=== PATIENT | male | born 1935 | race Caucasian/White ===

== ENCOUNTER 2018-09-23 14:26 | Outpatient (CLI) | payer MEDICARE, OTHER ==
[~2018-09-23] VITALS: Ht 172.7 cm; Wt 104.3 kg
[2018-09-23 15:25] LABS: TOTAL HEMOGLOBIN 17.2 G/dl (14.0-18.0)
[2018-09-23] MEDS ORDERED: albuterol 2.5 MG/3 ML nebule NEB PRN (15:35)
== END 2018-09-23 23:59 | disposition home or self-care (01) ==
LOC: RT 14:26
PROVIDERS: ATTEND Internal Medicine Pulmonary Disease
DX: J45.991 Cough variant asthma (principal); J98.4 Other disorders of lung; R06.09 Other forms of dyspnea
CPT/HCPCS: 71046; 85018; 94060; 94640; 94727; 94729